=== PATIENT | male | born 1950 | race Two or more races ===

== ENCOUNTER 2022-02-02 05:49 | Day surgery (SDC) | payer MEDICARE, OTHER ==
[2022-01-30 11:00] LABS: COVID AG,FIA SOURCE NASAL SWAB
[~2022-02-02] VITALS: Ht 182.9 cm; Wt 90.9 kg
[~2022-02-02 05:49] MED LIST: TRAM50TA4 PO
[2022-02-02] MEDS ORDERED: LIDOCAINE 4% 50 ML SOLUTION TP ONE ×2 (05:50)
[2022-02-02] MEDS ORDERED: BENZOCAINE 20% 50 MCG/SPRAY 57 GM TP ONE ×2 (05:50)
[2022-02-02] MEDS ORDERED: LIDOCAINE 2% 5 ML JELLY TP ONE ×2 (05:50)
[2022-02-02] MEDS ORDERED: SODIUM CHLORIDE 0.9% 1,000 ML ONE (06:30)
[2022-02-02] MEDS ORDERED: SODIUM CHLORIDE 0.9% 1,000 ML IV ONE (07:00)
[2022-02-02] MEDS ORDERED: FentaNYL CITRATE PF 100 MCG/2 ML VIAL ONE (08:27)
[2022-02-02] MEDS ORDERED: MIDAZOLAM HCL 5 MG/ML VIAL ONE (08:27)
[2022-02-02] MEDS ORDERED: MethylPREDNISolone SOD SUCC 125 MG/2 ML VIAL IVP ONE (09:00)
[2022-02-02] MEDS ORDERED: MethylPREDNISolone SOD SUCC 125 MG/2 ML VIAL ONE (09:07)
[2022-02-02] MEDS ORDERED: OXYGEN THERAPY IH SCH (20:00)
== END 2022-02-02 11:00 | disposition home or self-care (01) ==
LOC: SURGERY 05:49
PROVIDERS: ATTEND Internal Medicine Critical Care Medicine
DX: J38.4 Edema of larynx (principal); B37.0 Candidal stomatitis; F17.210 Nicotine dependence, cigarettes, uncomplicated; Z98.890 Other specified postprocedural states; Z88.8 Allergy status to other drugs, medicaments and biological substances
CPT/HCPCS: 31623; 31624; 71045; 87015; 87070; 87101; 87206; 87220; 87426; C9803; J2250; J2930; J3010; J7030; 88108; 88184; 88185; 88305; Z7610

== ENCOUNTER 2024-05-18 06:29 | Day surgery (SDC) | payer MEDICARE, OTHER ==
[~2024-05-18] VITALS: Ht 182.9 cm; Wt 90.9 kg
[~2024-05-18 06:29] MED LIST changes: +ALBU18HF7 IH; +ATOR20TA65 PO; +CHOL200059 PO; +CYAN-53 PO; +LOSA100T59 PO; +METO50 PO; -TRAM50TA4 PO; +TRAM50TA5 PO
[2024-05-18] MEDS ORDERED: SODIUM CHLORIDE 0.9% 1,000 ML ONE (06:45)
[2024-05-18] MEDS ORDERED: MIDAZOLAM HCL 2 MG/2 ML VIAL ONE (08:31)
[2024-05-18] MEDS ORDERED: FentaNYL CITRATE PF 100 MCG/2 ML VIAL ONE (08:32)
[2024-05-18] MEDS: SODIUM CHLORIDE 0.9% 1,000 ML IV ONE (08:48)
[2024-05-18 09:15] VITALS: PULSE 58; RESP 16; O2SAT 100
[2024-05-18] MEDS ORDERED: MethylPREDNISolone SOD SUCC 125 MG/2 ML VIAL ONE (09:39)
[2024-05-18] MEDS: MethylPREDNISolone SOD SUCC 125 MG/2 ML VIAL IVP ONE (10:29)
[2024-05-18] MEDS ORDERED: ALBUTEROL SULFATE 2.5 MG/0.5 ML NEB SOLUTION NEB ONE (12:00)
[2024-05-18] MEDS ORDERED: LIDOCAINE 2% 11 ML JELLY ONE (12:00)
[2024-05-18] MEDS ORDERED: BENZOCAINE 20% 50 MCG/SPRAY 57 GM ONE (12:00)
[2024-05-18] MEDS ORDERED: LIDOCAINE 4% 50 ML SOLUTION ONE (12:00)
== END 2024-05-18 11:30 | disposition home or self-care (01) ==
LOC: SURGERY 06:29
PROVIDERS: ATTEND Internal Medicine Critical Care Medicine
DX: R05.3 Chronic cough (principal); R06.2 Wheezing; R49.0 Dysphonia; R04.2 Hemoptysis; R06.1 Stridor; R91.8 Other nonspecific abnormal finding of lung field; B37.0 Candidal stomatitis
CPT/HCPCS: 31623; 87206; 87101; 87220; 87070; 88108; 31624; 94640; 71045; 87015; J3010; J2250; J2919; J7030; J7613; Z7610